=== PATIENT | male | born 1955 | race Two or more races ===

== ENCOUNTER → 2017-03-04 | Outpatient (CLI) | payer MEDICARE, MEDICAID ==
--- NOTE | 2017-03-04 11:26 | Diagnostic Imaging Report ---
Indication: Pain Comparison: None Findings: 3 views of the left foot were obtained. No acute fractures, malalignment, erosions or periostitis are identified. Moderate narrowing of the first MTP joint with marginal spurs demonstrated consistent with osteoarthritis. Impression: No acute injury.
== END | disposition home or self-care (01) ==
LOC: RAD 10:33
DX: M79.672 Pain in left foot (principal)